=== PATIENT | male | born 1945 | race Caucasian/White ===

== ENCOUNTER 2016-11-09 22:04 | Inpatient (IN) | payer OTHER ==
[~2016-11-09] VITALS: Ht 175.3 cm; Wt 78.0 kg
[2016-11-09 23:01] LABS: HEMATOCRIT 41.8 % (38.0-50.0); MCH 29.7 PG (29.0-34.0); MCHC 34.4 G/DL (30.0-36.0); MCV 86.2 FL (86-99); PLATELET COUNT 214 K/uL (156-360); RBC DIS.WIDTH-CV 11.9 % (11.8-14.6); RBC DIS.WIDTH-SD 37.2 % (39-53); RED BLOOD COUNT 4.85 M/uL (4.00-5.50); WHITE BLOOD COUNT 5.9 K/uL (4.1-10.2)
[2016-11-09 23:11] LABS: CHLORIDE 106 mEq/L (99-109); SODIUM 140 mEq/L (136-147)
[2016-11-09 23:13] LABS: GLUCOSE 137 mg/dL (70-99)
[2016-11-09 23:15] LABS: ANION GAP 9 MEQ/L (2-14); TOTAL BILIRUBIN 0.5 mg/dL (0.0-1.0)
[2016-11-09 23:17] LABS: ALKALINE PHOSPHATASE 94 IU/L (3-129); GFR ESTIMATE (CALCULATED) > 59 mL/min/
[2016-11-09 23:18] LABS: UREA NITROGEN (BUN) 18 mg/dL (9-23)
[2016-11-09 23:56] LABS: PROTHROMBIN TIME 10.6 (9.2-11.2); PTT 27.1 (25-32)
[2016-11-10] VITALS (7 sets, daily range): BP systolic 158–203; BP diastolic 77–96
[2016-11-10 00:03] LABS: TROP-I INTERPRETATION NEGATIVE; TROPONIN-I 0.08 ng/mL (0.0-0.30)
[2016-11-10] MEDS ORDERED: LO-DOSE ASPIRIN81 M1 PO (00:04)
[2016-11-10 00:57] LABS: HDL CHOLESTEROL 38 MG/DL (Desirable>=40); LDL CHOLESTEROL 125 mg/dL (Desirable<100); NON-HDL CHOLESTEROL 151 mg/dL (Desirable<160); TOTAL CHOLESTEROL 189 mg/dL (Desirable<200); TRIGLYCERIDES 131 MG/DL (Normal: <150)
[2016-11-10] MEDS ORDERED: DAILY VITAMIN1 EAC4 PO (01:19)
[2016-11-10 06:18] LABS: TROP-I INTERPRETATION NEGATIVE; TROPONIN-I 0.07 ng/mL (0.0-0.30)
[2016-11-10 06:40] LABS: Estimated Average Glucose 154 mg/dL (70-123)
[2016-11-10 13:19] LABS: TROP-I INTERPRETATION NEGATIVE; TROPONIN-I 0.07 ng/mL (0.0-0.30)
[2016-11-11 01:06] VITALS: BP 150/72
[2016-11-11 03:06] VITALS: BP 157/81
[2016-11-11 05:30] LABS: HEMATOCRIT 43.2 % (38.0-50.0); MCHC 34.7 G/DL (30.0-36.0); MCV 86.4 FL (86-99); PLATELET COUNT 240 K/uL (156-360); RBC DIS.WIDTH-CV 11.9 % (11.8-14.6); RBC DIS.WIDTH-SD 37.4 % (39-53); WHITE BLOOD COUNT 6.8 K/uL (4.1-10.2)
[2016-11-11 06:00] LABS: ALKALINE PHOSPHATASE 84 IU/L (3-129); ANION GAP 7 MEQ/L (2-14); CHLORIDE 104 MEQ/L (99-109); GFR ESTIMATE (CALCULATED) > 59 mL/min/; GLUCOSE 143 mg/dL (70-99); POTASSIUM 3.9 MEQ/L (3.7-5.4); SAMPLE HEMOLYSIS CHECK 0; SAMPLE ICTERIC CHECK 0; SAMPLE LIPEMIA CHECK 0; SODIUM 139 MEQ/L (136-147); TOTAL BILIRUBIN 0.5 MG/DL (0.0-1.0); UREA NITROGEN (BUN) 12 mg/dL (9-23)
[2016-11-11 08:15] VITALS: BP 177/82
[2016-11-11 08:18] VITALS: BP 169/80
[2016-11-11] MEDS ORDERED: PRAVASTATIN SOD40 MG PO (09:28)
[2016-11-11] MEDS ORDERED: ASPIRIN EC325 MG PO (09:28)
[2016-11-11] MEDS ORDERED: LISINOPRIL20 MG PO (09:28)
[2016-11-11] MEDS ORDERED: METFORMIN HCL500 MG PO (09:29)
[2016-11-11 12:35] LABS: POINT-OF-CARE METER ID UU13113831
== END 2016-11-11 13:47 | disposition home or self-care (01) | DRG 68 ==
LOC: EME 22:04 → EDOF 11-10 03:04 → 5WEST 11-10 04:29
PROVIDERS: Emergency Medicine; Hospitalist
DX: I65.23 Occlusion and stenosis of bilateral carotid arteries (principal); G45.9 Transient cerebral ischemic attack, unspecified; I10 Essential (primary) hypertension; E11.9 Type 2 diabetes mellitus without complications; E78.5 Hyperlipidemia, unspecified; R29.700 NIHSS score 0; Z79.82 Long term (current) use of aspirin; Z82.49 Family history of ischemic heart disease and other diseases of the circulatory system; Z83.3 Family history of diabetes mellitus; Z87.891 Personal history of nicotine dependence
CPT/HCPCS: 70450; 70498; 80053; 80061; 82607; 82746; 82948; 83036; 84443; 84484; 85027; 85610; 85730; 93005; 93306; 93880; 99281; 99285; J1650; J7030